=== PATIENT | female | born 1935 | race Hispanic/Latino ===

== ENCOUNTER 2016-06-23 15:03 | Outpatient (CLI) | payer MEDICARE, OTHER ==
--- NOTE | 2016-06-23 16:30 | XRay Report ---
CHEST TWO VIEWS: 06/23/16 15:03:00 CLINICAL: Shortness of breath. COMPARISON: None FINDINGS: Normal heart and pulmonary vasculature. The lungs are normally expanded and clear. Exaggerated thoracic kyphosis and mild osteopenia. No spine fracture. Mild degenerative changes in the spine. IMPRESSION: No acute cardiopulmonary process.
== END 2016-06-23 15:04 | disposition home or self-care (01) ==
LOC: SPVIMAG 15:03
PROVIDERS: ATTEND Internal Medicine
DX: M40.294 Other kyphosis, thoracic region (principal); M47.894 Other spondylosis, thoracic region; M85.80 Other specified disorders of bone density and structure, unspecified site; R06.89 Other abnormalities of breathing; R06.02 Shortness of breath
CPT/HCPCS: 71020